=== PATIENT | female | born 1975 | race Caucasian/White ===

== ENCOUNTER 2021-08-08 10:52 | Emergency (ER) | payer BC ==
[2021-08-08 11:24] VITALS: RESP 18; TEMP 98.3
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
[2021-08-08 13:05] VITALS: BP 149/90; PULSE 77
== END 2021-08-08 13:05 | disposition home or self-care (01) ==
LOC: EC 10:52
DX: M54.2 Cervicalgia (principal); R51.9 Headache, unspecified; R42 Dizziness and giddiness; Z87.891 Personal history of nicotine dependence; Z88.8 Allergy status to other drugs, medicaments and biological substances; V49.50XA Passenger injured in collision with unspecified motor vehicles in traffic accident, initial encounter
CPT/HCPCS: 70450; 72125; 99284